=== PATIENT | male | born 1940 | race Caucasian/White ===

== ENCOUNTER 2016-10-07 09:28 | Emergency (ER) | payer MEDICARE ==
[~2016-10-07] VITALS: Ht 182.9 cm; Wt 98.0 kg
[~2016-10-07 09:28] MED LIST: BAYE325T3 PO; CARV6.25 PO; LEVO.125 PO; NITR.3 SL; PRAV40TA2 PO
[2016-10-07 09:31] VITALS: BP 185/100; PULSE 62; RESP 20; TEMP 98.3; O2SAT 95
[2016-10-07 10:28] LABS: AUTOMATED NEUTROPHIL # 3.8 TH/MM3 (1.8-7.7); BASOPHIL % 0.8 % (0.0-2.0); EOSINOPHIL # 0.4 TH/MM3 (0-0.4); EOSINOPHIL % 6.3 % (0.0-4.0); HEMATOCRIT 42.3 % (39.0-51.0); HEMO FLAGS DIFF FINAL; LYMPH % 18.5 % (9.0-44.0); MEAN CELL VOLUME 87.1 FL (80.0-100.0); MEAN CORPUSCULAR HEMOGLOBIN 30.6 PG (27.0-34.0); MEAN CORPUSCULAR HGB CONC 35.2 % (32.0-36.0); MONO % 7.3 % (0.0-8.0); NEUT % 67.1 % (16.0-70.0); PLATELET COUNT 173 TH/MM3 (150-450); RED BLOOD COUNT 4.85 MIL/MM3 (4.50-5.90); RED CELL DISTRIBUTION WIDTH 13.2 % (11.6-17.2); WHITE BLOOD COUNT 5.6 TH/MM3 (4.0-11.0)
[2016-10-07 10:48] LABS: BICARBONATE 28.7 MEQ/L (21.0-32.0)
--- NOTE | 2016-10-07 10:55 | PD ---
HPI Chief Complaint: Musculoskeletal Complaint Time Seen by Provider: 09:47 Travel History International Travel<30 days: No Contact w/Intl Traveler<30days: No Traveled to known affect area: No History of Present Illness HPI 75-year-old male here with complaint of right leg pain. Patient states that he has a history of a postoperative DVT in the right leg 7 years ago. Is no longer anticoagulated and takes baby aspirin for cardiac prophylaxis. For the last 2 days he has had a pain in her pressure in the heel of the left foot that is made worse when ambulating and when pulling his toes towards his nose. Patient also notes paresthesias as though he fell asleep on the foot and the left first and second toe region. States that this is almost identical to when he had a DVT 7 years ago prompting ER visit today. He has not had any recent travel and has not noticed any swelling. PFSH Past Medical History Arthritis: Yes Asthma: No Autoimmune Disease: No Blood Disorders: No Anxiety: No Depression: No Heart Rhythm Problems: No Cancer: Yes (PROSTATE) Cardiac Catheterization: No Cardiovascular Problems: No High Cholesterol: Yes Chemotherapy: No Chest Pain: No Congestive Heart Failure: No COPD: No Cerebrovascular Accident: No Diabetes: No Diminished Hearing: No Endocrine: Yes GERD: No Glaucoma: No Genitourinary: Yes Headaches: No Hepatitis: No Hiatal Hernia: No Hypertension: No Immune Disorder: No Implanted Vascular Access Dvce: Yes Kidney Stones: No Musculoskeletal: Yes Neurologic: No Psychiatric: No Reproductive: No Respiratory: Yes Migraines: No Myocardial Infarction: No Radiation Therapy: No Renal Failure: No Seizures: No Sleep Apnea: Yes Thyroid Disease: Yes (HYPO) Ulcer: No PNEUMOCCOCAL Vaccine (Year): 2 Past Surgical History Abdominal Surgery: Yes (HERNIA WITH MESH) AICD: No Appendectomy: No Arteriovenous Shunt: No Body Medical Devices: MESH Cardiac Surgery: No Cholecystectomy: No Coronary Artery Bypass Graft: No Ear Surgery: No Endocrine Surgery: No Eye Surgery: Yes (CATARACT SX BILATERAL) Genitourinary Surgery: Yes (prostate surgery) Gynecologic Surgery: No Insulin Pump: No Joint Replacement: No Oral Surgery: No Pacemaker: No Thoracic Surgery: No Tonsillectomy: Yes Other Surgery: Yes (PROSTATE REMOVAL) Social History Alcohol Use: Yes Tobacco Use: No Substance Use: No Allergies-Medications (Allergen,Severity, Reaction): Coded Allergies: No Known Allergies (Verified , 10/07/16) Reported Meds & Prescriptions Reported Meds & Active Scripts Active Reported Coreg 6.25 mg (Carvedilol) 6.25 Mg Tab 6.25 Mg PO BID Coby Aspirin (Aspirin) 325 Mg Tab 81 Mg PO DAILY Pravastatin Sodium 40 Mg Tab 40 Mg PO HS Synthroid (Levothyroxine Sodium) 125 Mcg Tab 112 Mcg PO DAILY Review of Systems Except as stated in HPI: all other systems reviewed are Neg Physical Exam Narrative GENERAL: Well-appearing male in no acute distress SKIN: Focused skin assessment warm/dry. HEAD: Normocephalic. EYES: No scleral icterus. No injection or drainage. ENT: Mucous membranes pink and moist. NECK: Supple CARDIOVASCULAR: Regular rate and rhythm. RESPIRATORY: No accessory muscle use. MUSCULOSKELETAL: Right leg without obvious deformity. Trace pedal edema bilaterally, symmetric. Distal sensation, pulses intact. No erythema. No tenderness to palpation. Positive Homans sign on the right. Range of motion and gait normal NEUROLOGICAL: Awake and alert. Normal speech. Subjective paresthesias over the first and second toes on the right foot PSYCHIATRIC: Appropriate mood and affect; insight and judgment normal. Data Data Last Documented VS Vital Signs Date Time Temp Pulse Resp B/P Pulse Ox O2 Delivery O2 Flow Rate FiO2 10/07/16 09:31 98.3 62 20 185/100 95 Room Air Orders Us Leg Venous Doppler (10/07/16 ) Basic Metabolic Panel (Bmp) (10/07/16 09:50) Complete Blood Count With Diff (10/07/16 09:50) Labs Laboratory Tests Test 10/07/16 10:20 White Blood Count 5.6 TH/MM3 Red Blood Count 4.85 MIL/MM3 Hemoglobin 14.9 GM/DL Hematocrit 42.3 % Mean Corpuscular Volume 87.1 FL Mean Corpuscular Hemoglobin 30.6 PG Mean Corpuscular Hemoglobin 35.2 % Concent Red Cell Distribution Width 13.2 % Platelet Count 173 TH/MM3 Mean Platelet Volume 8.4 FL Neutrophils (%) (Auto) 67.1 % Lymphocytes (%) (Auto) 18.5 % Monocytes (%) (Auto) 7.3 % Eosinophils (%) (Auto) 6.3 % Basophils (%) (Auto) 0.8 % Neutrophils # (Auto) 3.8 TH/MM3 Lymphocytes # (Auto) 1.0 TH/MM3 Monocytes # (Auto) 0.4 TH/MM3 Eosinophils # (Auto) 0.4 TH/MM3 Basophils # (Auto) 0.0 TH/MM3 CBC Comment DIFF FINAL Differential Comment Sodium Level 141 MEQ/L Potassium Level 5.0 MEQ/L Chloride Level 108 MEQ/L Carbon Dioxide Level 28.7 MEQ/L Anion Gap 4 MEQ/L Blood Urea Nitrogen 17 MG/DL Creatinine 1.35 MG/DL Estimat Glomerular Filtration 52 ML/MIN Rate Random Glucose 87 MG/DL Calcium Level 8.5 MG/DL [facility] Medical Decision Making Medical Screen Exam Complete: Yes Emergency Medical Condition: Yes Medical Record Reviewed: Yes Differential Diagnosis 75-year-old male here with complaint of pain in the right foot similar to previous DVT. Differential includes DVT, Huang cyst, muscle cramping. No trauma to suggest fracture Narrative Course Laboratory workup notable for baseline renal insufficiency. Duplex ultrasound right lower extremity showed no evidence of DVT. Diagnosis Primary Impression: Pain of right heel Referrals: Primary Care Physician as needed Additional Instructions: Follow-up with primary care provider symptoms persist. Med/Other Pt SpecificInfo: No Change to Meds Disposition: 01 DISCHARGE HOME Condition: Stable Tasia Mendes MD October 07, 2016 10:55
--- NOTE | 2016-10-07 11:04 | RADRPT ---
EXAM DATE/TIME: 10/07/2016 10:21 [facility] COMPARISON: No previous studies available for comparison. INDICATIONS : Right leg pain. MEDICAL HISTORY : Hypothyroidism. Hypercholesterolemia. Arthritis. Prostate cancer. CAD. HTN. Hyperlipidemia. Sleep apnea. Anticoagulant therapy, Aspirin 81mg. SURGICAL HISTORY : Tonsillectomy. Coronary artery stent. Prostatectomy. Bilateral cataract extraction. Hernia repair wi th mesh. Blood transfusions. ENCOUNTER: Initial ACUITY: 1 day PAIN SCORE: 5/10 LOCATION: Right leg. TECHNIQUE: Venous ultrasound of the leg was performed from the inguinal ligament to the proximal calf. Real-maura e, color Doppler and spectral tracing, compression and augmentation techniques were used. FINDINGS: There is normal compressibility of the deep venous system from the inguinal region to the proximal ca lf. No echogenic clot is seen in the lumen of the common femoral, femoral, popliteal, and posterior tibial veins. There is a normal response of the venous system to proximal and distal augmentation an d respiration. CONCLUSION: Normal examination. Ganga Barclay MD on October 07, 2016 at 11:02 Board Certified Radiologist. This report was verified electronically.
== END 2016-10-07 11:27 | disposition home or self-care (01) ==
LOC: NEPD 09:28
DX: M79.671 Pain in right foot (principal)
CPT/HCPCS: 80048; 85025; 93971

== ENCOUNTER 2017-03-10 03:03 | Observation (INO) | payer MEDICARE ==
[~2017-03-10] VITALS: Ht 182.9 cm; Wt 91.0 kg
[2017-03-10] VITALS (11 sets, daily range): BP systolic 124–213; BP diastolic 70–103; PULSE 54–104; RESP 16–20; TEMP 97.5–98.2; O2SAT 95–98
[~2017-03-10 03:03] MED LIST changes: -NITR.3 SL
[2017-03-10] MEDS ORDERED: PRAV40TA2 PO (03:15)
[2017-03-10] MEDS ORDERED: SYNT112T PO (03:15)
[2017-03-10] MEDS ORDERED: CARV6.25 PO (03:15)
[2017-03-10] MEDS ORDERED: ASPI81CH7 PO (03:15)
--- NOTE | 2017-03-10 03:18 | PD ---
HPI Chief Complaint: Chest Pain Time Seen by Provider: 03:18 Travel History International Travel<30 days: No Contact w/Intl Traveler<30days: No Traveled to known affect area: No History of Present Illness HPI 76-year-old male came to the emergency room after he was woken up from sleep with a severe substernal chest pain. Patient says the pain started in the midsternal area and radiate across the chest. The pain felt exactly like his chest pain when he had his heart attack and had 2 stents put in. This was 2-3 years ago. Patient takes aspirin. He is not on Plavix. He says initially the pain was 8 out of 10 and now it is 4 out of 10. It feels like a pressure. No aggravating or relieving factors. Patient is not a smoker. His blood pressure was more than 200 when he first came in. [facility] Past Medical History Narrative Medical List of his past medical, surgical, social and family history is reviewed from the nursing note. Arthritis: Yes Asthma: No Autoimmune Disease: No Blood Disorders: No Anxiety: No Depression: No Heart Rhythm Problems: No Cancer: Yes (PROSTATE) Cardiac Catheterization: Yes (STENT X2) Cardiovascular Problems: No High Cholesterol: Yes Chemotherapy: No Chest Pain: No Congestive Heart Failure: No COPD: No Cerebrovascular Accident: No Diabetes: No Diminished Hearing: No Endocrine: Yes GERD: No Glaucoma: No Genitourinary: Yes Headaches: No Hepatitis: No Hiatal Hernia: No Hypertension: No Immune Disorder: No Implanted Vascular Access Dvce: Yes Kidney Stones: No Musculoskeletal: Yes Neurologic: No Psychiatric: No Reproductive: No Respiratory: Yes Migraines: No Myocardial Infarction: Yes Radiation Therapy: No Renal Failure: No Seizures: No Sleep Apnea: Yes Thyroid Disease: Yes (HYPO) Ulcer: No Tetanus Vaccination: Unknown Influenza Vaccination: No PNEUMOCCOCAL Vaccine (Year): 2 Past Surgical History Abdominal Surgery: Yes (HERNIA WITH MESH) AICD: No Appendectomy: No Arteriovenous Shunt: No Body Medical Devices: MESH Cardiac Surgery: No Cholecystectomy: No Coronary Artery Bypass Graft: No Ear Surgery: No Endocrine Surgery: No Eye Surgery: Yes (CATARACT SX BILATERAL) Genitourinary Surgery: Yes (prostate surgery) Gynecologic Surgery: No Insulin Pump: No Joint Replacement: No Oral Surgery: No Pacemaker: No Thoracic Surgery: No Tonsillectomy: Yes Other Surgery: Yes (PROSTATE REMOVAL) Family History Family Myocardial Infarction: Yes (MOTHER NOT SURE OF DATE) Social History Alcohol Use: Yes Tobacco Use: No Substance Use: No Allergies-Medications (Allergen,Severity, Reaction): Coded Allergies: No Known Allergies (Verified , 10/07/16) Comments No known drug allergies. Reported Meds & Prescriptions Reported Meds & Active Scripts Active Reported Pravastatin 40 Mg Tab 40 Mg PO HS Synthroid (Levothyroxine Sodium) 112 Mcg Tab 112 Mcg PO DAILY Coreg (Carvedilol) 6.25 Mg Tab 6.25 Mg PO BID Aspirin Children's (Aspirin) 81 Mg Chew 81 Mg PO DAILY Coreg 6.25 mg (Carvedilol) 6.25 Mg Tab 6.25 Mg PO BID Coby Aspirin (Aspirin) 325 Mg Tab 81 Mg PO DAILY Pravastatin Sodium 40 Mg Tab 40 Mg PO HS Synthroid (Levothyroxine Sodium) 125 Mcg Tab 112 Mcg PO DAILY Narrative Medication List of his home medications reviewed from the nursing note. Review of Systems Except as stated in HPI: all other systems reviewed are Neg Cardiovascular: Positive: Chest Pain or Discomfort Physical Exam Narrative GENERAL: Awake, alert, anxious SKIN: Focused skin assessment warm/dry. HEAD: Atraumatic. Normocephalic. EYES: Pupils equal and round. No scleral icterus. No injection or drainage. ENT: No nasal bleeding or discharge. Mucous membranes pink and moist. NECK: Trachea midline. No JVD. CARDIOVASCULAR: Regular rate and rhythm. No murmur appreciated. RESPIRATORY: No accessory muscle use. Clear to auscultation. Breath sounds equal bilaterally. GASTROINTESTINAL: Abdomen soft, non-tender, nondistended. Hepatic and splenic margins not palpable. MUSCULOSKELETAL: No obvious deformities. No clubbing. No cyanosis. No edema. NEUROLOGICAL: Awake and alert. No obvious cranial nerve deficits. Motor grossly within normal limits. Normal speech. PSYCHIATRIC: Appropriate mood and affect; insight and judgment normal. Data Data Last Documented VS Orders Orders Complete Blood Count With Diff (03/10/17 03:15) Chest, Single Ap (03/10/17 03:15) Iv Access Insert/Monitor (03/10/17 03:15) Ecg Monitoring (03/10/17 03:15) Oxygen Administration (03/10/17 03:15) Oximetry (03/10/17 03:15) Electrocardiogram (03/10/17 03:18) Basic Metabolic Panel (Bmp) (03/10/17 03:18) Ckmb (Isoenzyme) Profile (03/10/17 03:18) Magnesium (Mg) (03/10/17 03:18) Prothrombin Time / Inr (Pt) (03/10/17 03:18) Act Partial Throm Time (Ptt) (03/10/17 03:18) Troponin I (03/10/17 03:18) Bilateral Bp Monitoring (03/10/17 03:18) Aspirin Chew (Aspirin Chew) (03/10/17 03:30) Sodium Chloride 0.9% Flush (Ns Flush) (03/10/17 03:30) Nitroglycerin Sl (Nitrostat Sl) (03/10/17 03:30) CKMB (03/10/17 03:15) CKMB% (03/10/17 03:15) Admit Order (Ed Use Only) (03/10/17 04:33) Place In Observation (03/10/17 04:33) Activity Bed Rest With Brp (03/10/17 04:33) Vital Signs (Adult) Q4H (03/10/17 04:33) Cardiac Rhythm .As Directed (03/10/17 04:33) Notify Dr: Other .PRN (03/10/17 04:33) Notify DrKirk Parameters (03/10/17 04:33) Resp Oxygen Nasal Cannula (03/10/17 ) Diet Heart Healthy (03/10/17 Breakfast) Ckmb (Isoenzyme) Profile (03/10/17 04:33) Troponin I (03/10/17 04:33) Electrocardiogram (03/10/17 07:33) ^ Obtain (03/10/17 04:33) Sodium Chloride 0.9% Flush (Ns Flush) (03/10/17 04:45) Sodium Chloride 0.9% Flush (Ns Flush) (03/10/17 09:00) Acetaminophen (Tylenol) (03/10/17 04:45) Ondansetron Inj (Zofran Inj) (03/10/17 04:45) Nitroglycerin Sl (Nitrostat Sl) (03/10/17 04:45) Composition Siding Worker / Telemetry VIVIAN.Q8H (03/10/17 04:33) CKMB (03/10/17 06:05) CKMB% (03/10/17 06:05) Labs Laboratory Tests Test 03/10/17 03:15 White Blood Count 6.5 TH/MM3 Red Blood Count 5.14 MIL/MM3 Hemoglobin 15.8 GM/DL Hematocrit 46.0 % Mean Corpuscular Volume 89.5 FL Mean Corpuscular Hemoglobin 30.7 PG Mean Corpuscular Hemoglobin Concent 34.4 % Red Cell Distribution Width 13.6 % Platelet Count 205 TH/MM3 Mean Platelet Volume 8.5 FL Neutrophils (%) (Auto) 60.0 % Lymphocytes (%) (Auto) 22.2 % Monocytes (%) (Auto) 9.7 % Eosinophils (%) (Auto) 7.3 % Basophils (%) (Auto) 0.8 % Neutrophils # (Auto) 3.9 TH/MM3 Lymphocytes # (Auto) 1.4 TH/MM3 Monocytes # (Auto) 0.6 TH/MM3 Eosinophils # (Auto) 0.5 TH/MM3 Basophils # (Auto) 0.1 TH/MM3 CBC Comment DIFF FINAL Differential Comment Prothrombin Time 10.0 SEC Prothromb Time International Ratio 0.9 RATIO Activated Partial Thromboplast Time 27.4 SEC Blood Urea Nitrogen 19 MG/DL Creatinine 1.41 MG/DL Random Glucose 109 MG/DL Calcium Level 8.7 MG/DL Magnesium Level 2.4 MG/DL Sodium Level 143 MEQ/L Potassium Level 4.2 MEQ/L Chloride Level 110 MEQ/L Carbon Dioxide Level 27.0 MEQ/L Anion Gap 6 MEQ/L Estimat Glomerular Filtration Rate 49 ML/MIN Total Creatine Kinase 145 U/L Creatine Kinase MB 1.9 NG/ML Troponin I LESS THAN 0.02 NG/ML MDM Medical Decision Making Medical Screen Exam Complete: Yes Emergency Medical Condition: Yes Medical Record Reviewed: Yes Interpretation(s) Twelve-lead EKG was reviewed by me. Normal sinus rhythm, left axis deviation, nonspecific ST-T wave changes, first-degree AV block. Heart rate of 65 bpm. Differential Diagnosis ACS, non-STEMI, hypertensive urgency Narrative Course 4:37 AM patient was given 2 baby aspirin and a sublingual nitroglycerin. With test results of back and within acceptable limits. Blood pressure is down to 125/75. Patient says his pain is down to 1 out of 10. Given his risk factors I will admit him to the chest pain center so that he can be evaluated by the tip banding machine operator to rule out ACS. Patient is comfortable with that plan. Procedures EKG Prior to Arrival: No Diagnosis Primary Impression: Chest pain Qualified Codes: R07.9 - Chest pain, unspecified Admitting Information Admitting Physician Requests: Hunter Gray MD Mar 10, 2017 03:18
[2017-03-10] MEDS ORDERED: NITROGLYCERIN 0.4 MG SL 25 TABS/BTL SL ONE (03:30)
[2017-03-10] MEDS ORDERED: SODIUM CHLORIDE 0.9% FLUSH 10 ML FLUSH IVF PRN (03:30)
[2017-03-10] MEDS ORDERED: ASPIRIN 81 MG CHEW TAB PO ONE (03:30)
[2017-03-10 03:32] LABS: AUTOMATED NEUTROPHIL # 3.9 TH/MM3 (1.8-7.7); BASOPHIL # 0.1 TH/MM3 (0-0.2); BASOPHIL % 0.8 % (0.0-2.0); EOSINOPHIL # 0.5 TH/MM3 (0-0.4); EOSINOPHIL % 7.3 % (0.0-4.0); HEMOGLOBIN 15.8 GM/DL (13.0-17.0); LYMPH % 22.2 % (9.0-44.0); LYMPHOCYTE # 1.4 TH/MM3 (1.0-4.8); MEAN CELL VOLUME 89.5 FL (80.0-100.0); MEAN CORPUSCULAR HEMOGLOBIN 30.7 PG (27.0-34.0); MEAN CORPUSCULAR HGB CONC 34.4 % (32.0-36.0); MEAN PLATELET VOLUME 8.5 FL (7.0-11.0); MONO % 9.7 % (0.0-8.0); MONOCYTE # 0.6 TH/MM3 (0-0.9); PLATELET COUNT 205 TH/MM3 (150-450); RED BLOOD COUNT 5.14 MIL/MM3 (4.50-5.90); RED CELL DISTRIBUTION WIDTH 13.6 % (11.6-17.2); WHITE BLOOD COUNT 6.5 TH/MM3 (4.0-11.0)
[2017-03-10 03:40] LABS: INTERNATIONAL NORMALIZED RATIO 0.9 RATIO
--- NOTE | 2017-03-10 03:41 | RADRPT ---
EXAM DATE/TIME: 03/10/2017 03:16 [facility] COMPARISON: No previous studies available for comparison. INDICATIONS : Chest pain. MEDICAL HISTORY : Hypothyroidism. Hypercholesterolemia. Arthritis. Prostate cancer. CAD. HTN.Hyperlipidemia. Sleep apne a. Anticoagulant therapy. SURGICAL HISTORY : Tonsillectomy. Coronary artery stent. Prostatectomy. Bilateral cataract extraction. Hernia repair wit h mesh. ENCOUNTER: Initial ACUITY: 1 day PAIN SCORE: 4/10 LOCATION: Bilateral chest FINDINGS: A single view of the chest demonstrates the lungs to be symmetrically aerated without evidence of mas s, infiltrate or effusion. The cardiomediastinal contours are unremarkable. Osseous structures are intact. CONCLUSION: No evidence of acute cardiopulmonary disease. Aroldo Zurita MD on March 10, 2017 at 3:39 Board Certified Radiologist. This report was verified electronically.
[2017-03-10 03:58] LABS: BLOOD UREA NITROGEN 19 MG/DL (7-18); CALCIUM 8.7 MG/DL (8.5-10.1); CHLORIDE 110 MEQ/L (98-107); CREATININE 1.41 MG/DL (0.60-1.30); GLOMERULAR FILTRATION RATE 49 ML/MIN (>89); GLUCOSE,RANDOM 109 MG/DL (74-106); MAGNESIUM 2.4 MG/DL (1.5-2.5); SODIUM (NA) 143 MEQ/L (136-145)
[2017-03-10 04:02] LABS: TROPONIN I LESS THAN 0.02 NG/ML (0.02-0.05)
[2017-03-10] MEDS ORDERED: ONDANSETRON HCL 4 MG/2 ML VIAL IV PUSH PRN (04:45)
[2017-03-10] MEDS ORDERED: NITROGLYCERIN 0.4 MG SL 25 TABS/BTL SL PRN (04:45)
[2017-03-10] MEDS ORDERED: SODIUM CHLORIDE 0.9% FLUSH 10 ML FLUSH IV FLUSH PRN (04:45)
[2017-03-10] MEDS ORDERED: ACETAMINOPHEN 500 MG CPLT PO PRN (04:45)
[2017-03-10 06:50] LABS: TROPONIN I LESS THAN 0.02 NG/ML (0.02-0.05)
[2017-03-10] MEDS ORDERED: LEVOTHYROXINE SODIUM 112 MCG TAB PO SCH (08:00)
--- NOTE | 2017-03-10 08:17 | MH ---
cc: JOSH PANCHAL MD DATE OF ADMISSION: 03/10/2017 HISTORY OF PRESENT ILLNESS This is a 76-year-old gentleman who presented to the emergency room with chest discomfort which woke him from sleep and was described as a pressure-type discomfort. No significant shortness of breath, diaphoresis, nausea or vomiting was present. He noted this was similar to a prior episode that he had in 2014 when he had an acute inferior TX and came to the emergency department. He was given sublingual nitroglycerin with relief of his discomfort. An electrocardiogram done in the emergency department and subsequently after his discomfort are normal, and serial troponins have been unremarkable. Actually he has been doing very well since his TX with no other episodes of exertional or nonexertional discomfort. PAST MEDICAL HISTORY 1. Hypertension. 2. Hyperlipidemia. 3. Hypothyroidism. MEDICATIONS Medications at home have included: 1. Carvedilol 6.25 mg twice daily. 2. Aspirin 81 mg daily. 3. Pravastatin 40 mg daily. 4. Synthroid 125 mcg daily. ALLERGIES None. SOCIAL HISTORY The patient does not smoke. He occasionally drinks alcohol. He does not use recreational drugs. REVIEW OF SYSTEMS Otherwise unremarkable. PHYSICAL EXAMINATION GENERAL: He is awake and alert. VITAL SIGNS: Blood pressure 120/70, pulse 70 and regular. NECK: There is no neck vein distension. Carotids are normal. LUNGS: Clear. CARDIOVASCULAR: Regular rate and rhythm with no significant murmur or gallop noted. ABDOMEN: Soft. There is no tenderness or organomegaly. EXTREMITIES: No edema. ASSESSMENT AND PLAN The patient has had chest discomfort of uncertain etiology. I will discuss this with Dr. Cervantes. Will plan a Lexiscan for further evaluation and continue his present medical regimen. MD QUINTON Story/LEON /7:54 AM /8:00 AM
--- NOTE | 2017-03-10 08:17 | MH ---
cc: JOSH PANCHAL MD DATE OF ADMISSION: 03/10/2017 HISTORY OF PRESENT ILLNESS This is a 76-year-old gentleman who presented to the emergency room with chest discomfort which woke him from sleep and was described as a pressure-type discomfort. No significant shortness of breath, diaphoresis, nausea or vomiting was present. He noted this was similar to a prior episode that he had in 2014 when he had an acute inferior SC and came to the emergency department. He was given sublingual nitroglycerin with relief of his discomfort. An electrocardiogram done in the emergency department and subsequently after his discomfort are normal, and serial troponins have been unremarkable. Actually he has been doing very well since his SC with no other episodes of exertional or nonexertional discomfort. PAST MEDICAL HISTORY 1. Hypertension. 2. Hyperlipidemia. 3. Hypothyroidism. MEDICATIONS Medications at home have included: 1. Carvedilol 6.25 mg twice daily. 2. Aspirin 81 mg daily. 3. Pravastatin 40 mg daily. 4. Synthroid 125 mcg daily. ALLERGIES None. SOCIAL HISTORY The patient does not smoke. He occasionally drinks alcohol. He does not use recreational drugs. REVIEW OF SYSTEMS Otherwise unremarkable. PHYSICAL EXAMINATION GENERAL: He is awake and alert. VITAL SIGNS: Blood pressure 120/70, pulse 70 and regular. NECK: There is no neck vein distension. Carotids are normal. LUNGS: Clear. CARDIOVASCULAR: Regular rate and rhythm with no significant murmur or gallop noted. ABDOMEN: Soft. There is no tenderness or organomegaly. EXTREMITIES: No edema. ASSESSMENT AND PLAN The patient has had chest discomfort of uncertain etiology. I will discuss this with Dr. Cervantes. Will plan a Lexiscan for further evaluation and continue his present medical regimen. MD QUINTON Story/LEON /7:54 AM /8:00 AM
--- NOTE | 2017-03-10 08:17 | MH ---
cc: JOSH PANCHAL MD DATE OF ADMISSION: 03/10/2017 HISTORY OF PRESENT ILLNESS This is a 76-year-old gentleman who presented to the emergency room with chest discomfort which woke him from sleep and was described as a pressure-type discomfort. No significant shortness of breath, diaphoresis, nausea or vomiting was present. He noted this was similar to a prior episode that he had in 2014 when he had an acute inferior ID and came to the emergency department. He was given sublingual nitroglycerin with relief of his discomfort. An electrocardiogram done in the emergency department and subsequently after his discomfort are normal, and serial troponins have been unremarkable. Actually he has been doing very well since his ID with no other episodes of exertional or nonexertional discomfort. PAST MEDICAL HISTORY 1. Hypertension. 2. Hyperlipidemia. 3. Hypothyroidism. MEDICATIONS Medications at home have included: 1. Carvedilol 6.25 mg twice daily. 2. Aspirin 81 mg daily. 3. Pravastatin 40 mg daily. 4. Synthroid 125 mcg daily. ALLERGIES None. SOCIAL HISTORY The patient does not smoke. He occasionally drinks alcohol. He does not use recreational drugs. REVIEW OF SYSTEMS Otherwise unremarkable. PHYSICAL EXAMINATION GENERAL: He is awake and alert. VITAL SIGNS: Blood pressure 120/70, pulse 70 and regular. NECK: There is no neck vein distension. Carotids are normal. LUNGS: Clear. CARDIOVASCULAR: Regular rate and rhythm with no significant murmur or gallop noted. ABDOMEN: Soft. There is no tenderness or organomegaly. EXTREMITIES: No edema. ASSESSMENT AND PLAN The patient has had chest discomfort of uncertain etiology. I will discuss this with Dr. Cervantes. Will plan a Lexiscan for further evaluation and continue his present medical regimen. MD QUINTON Story/LEON /7:54 AM /8:00 AM
[2017-03-10] MEDS ORDERED: CARVEDILOL 6.25 MG TAB PO SCH (09:00)
[2017-03-10] MEDS ORDERED: SODIUM CHLORIDE 0.9% FLUSH 10 ML FLUSH IV FLUSH SCH (09:00)
[2017-03-10] MEDS ORDERED: ASPIRIN 81 MG CHEW TAB PO SCH (09:00)
[2017-03-10] MEDS ORDERED: REGADENOSON INJ 0.4 MG/5 ML SYR ONE (10:11)
--- NOTE | 2017-03-10 11:30 | RADRPT ---
EXAM DATE/TIME: 03/10/2017 09:00 [facility] COMPARISON: No previous studies available for comparison. INDICATIONS : Substernal chest pain. Angina. DOSE: 26.4 mCi Tc99m Myoview at stress. 8.7 mCi Tc99m Myoview at rest. 0.4 mg Lexiscan STRESS SYMPTOMS: Dyspnea and headache. EJECTION FRACTION: 63% MEDICAL HISTORY : Hypercholesterolemia. Hypertension. Carcinoma, prostate. SURGICAL HISTORY : Coronary artery stent. Tonsillectomy. ENCOUNTER: Initial ACUITY: 1 day PAIN SCALE: 8/10 LOCATION: Substernal chest TECHNIQUE: The patient underwent pharmacologic stress with infusion of prescribed dose. Continuous ECG tracing was monitored during stress. Gated SPECT imaging was performed after stress and conventional SPECT i maging was performed at rest. The examination was performed on a SPECT/CT scanner, both attenuation and non-corrected datasets were reviewed. FINDINGS: DISTRIBUTION: The maximum perfused segment at stress is in the anterolateral wall. PERFUSION STUDY: The pattern of perfusion at stress shows fixed diminished perfusion to the apex. Approximately 10% re distribution in segments of the inferolateral wall would not be considered statistically significant. GATED STUDY: There is intact wall motion and thickening without hypokinetic or dyskinetic segments. CONCLUSION: 1. 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 2. No reversibility to suggest ischemia. 3. Adequate wall motion throughout with an estimated ejection fraction of 63%. RISK CATEGORY: Low (<1% Annual Mortality Rate) Joseph Vela MD on March 10, 2017 at 11:26 Board Certified Radiologist. This report was verified electronically.
--- NOTE | 2017-03-10 12:30 | PD.CARD.PN ---
Subjective Subjective Remarks Feels well. No further chest pain. Lexiscan shows no evidence of ischemia. Will allow home with follow up with Dr. Cervantes. Patient to return if symptoms recur Objective Medications Current Medications Medications (Trade) Dose Ordered Sig/Chuy Route Start Time Stop Time Status Last Admin (NS Flush) 2 ml UNSCH PRN IV FLUSH 03/10/17 04:45 (NS Flush) 2 ml BID IV FLUSH 03/10/17 09:00 03/10/17 07:52 (Tylenol) 500 mg Q4H PRN PO 03/10/17 04:45 (Zofran Inj) 4 mg Q6H PRN IV PUSH 03/10/17 04:45 (Nitrostat Sl) 0.4 mg Q5M PRN SL 03/10/17 04:45 (Coreg) 6.25 mg Q12HR PO 03/10/17 09:00 03/10/17 11:29 (Aspirin Chew) 81 mg DAILY PO 03/10/17 09:00 03/10/17 11:29 (Synthroid) 112 mcg DAILY@0600 PO 03/10/17 08:00 03/10/17 11:30 (Pravachol) 40 mg HS PO 03/10/17 21:00 Vital Signs / I&O Vital Signs Date Time Temp Pulse Resp B/P (MAP) Pulse Ox O2 Delivery O2 Flow Rate FiO2 03/10/17 12:02 98.2 57 16 157/86 (109) 95 03/10/17 07:57 60 03/10/17 07:19 98.0 54 16 154/89 (110) 97 03/10/17 07:09 97 03/10/17 05:35 98.1 58 18 163/82 (109) 97 03/10/17 05:17 03/10/17 05:00 60 16 135/70 (91) 97 Room Air 03/10/17 04:00 58 16 124/70 (88) 97 Room Air 03/10/17 03:45 61 16 141/77 (98) 97 Room Air 03/10/17 03:30 69 16 188/87 (120) 97 Room Air 03/10/17 03:07 97.5 76 16 212/103 (139) 98 03/10/17 03:04 97.9 104 20 213/103 (139) 96 Room Air Laboratory Laboratory Tests Test 03/10/17 03:15 03/10/17 06:05 White Blood Count 6.5 TH/MM3 Red Blood Count 5.14 MIL/MM3 Hemoglobin 15.8 GM/DL Hematocrit 46.0 % Mean Corpuscular Volume 89.5 FL Mean Corpuscular Hemoglobin 30.7 PG Mean Corpuscular Hemoglobin Concent 34.4 % Red Cell Distribution Width 13.6 % Platelet Count 205 TH/MM3 Mean Platelet Volume 8.5 FL Neutrophils (%) (Auto) 60.0 % Lymphocytes (%) (Auto) 22.2 % Monocytes (%) (Auto) 9.7 % Eosinophils (%) (Auto) 7.3 % Basophils (%) (Auto) 0.8 % Neutrophils # (Auto) 3.9 TH/MM3 Lymphocytes # (Auto) 1.4 TH/MM3 Monocytes # (Auto) 0.6 TH/MM3 Eosinophils # (Auto) 0.5 TH/MM3 Basophils # (Auto) 0.1 TH/MM3 CBC Comment DIFF FINAL Differential Comment Prothrombin Time 10.0 SEC Prothromb Time International Ratio 0.9 RATIO Activated Partial Thromboplast Time 27.4 SEC Blood Urea Nitrogen 19 MG/DL Creatinine 1.41 MG/DL Random Glucose 109 MG/DL Calcium Level 8.7 MG/DL Magnesium Level 2.4 MG/DL Sodium Level 143 MEQ/L Potassium Level 4.2 MEQ/L Chloride Level 110 MEQ/L Carbon Dioxide Level 27.0 MEQ/L Anion Gap 6 MEQ/L Estimat Glomerular Filtration Rate 49 ML/MIN Total Creatine Kinase 145 U/L 127 U/L Creatine Kinase MB 1.9 NG/ML 1.6 NG/ML Troponin I LESS THAN 0.02 NG/ML LESS THAN 0.02 NG/ML Imaging Last 24 hours Impressions Chest X-Ray 03/10/17 0315 Signed Impressions: Service Date/Time: Friday, March 10, 2017 03:16 - CONCLUSION: No evidence of acute cardiopulmonary disease. Aroldo Zurita MD Myocardial Perfusion Scan Nuc Med 03/10/17 0000 Signed Impressions: Service Date/Time: Friday, March 10, 2017 09:00 - CONCLUSION: 1. 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 2. No reversibility to suggest ischemia. 3. Adequate wall motion throughout with an estimated ejection fraction of 63%%. RISK CATEGORY: Low (<1%% Annual Mortality Rate) MD Duane Barber David Lowell MD Mar 10, 2017 12:30
--- NOTE | 2017-03-10 14:39 | HHI.DS ---
Discharge Summary Admission Date Mar 10, 2017 at 04:35 Admitting Diagnosis chest pain, rule out ACS CBC/BMP: 03/10/1731403/10/17314 Significant Findings Laboratory Tests Test 03/10/17 03:15 03/10/17 06:05 Monocytes (%) (Auto) 9.7 % (0.0-8.0) Eosinophils (%) (Auto) 7.3 % (0.0-4.0) Eosinophils # (Auto) 0.5 TH/MM3 (0-0.4) Blood Urea Nitrogen 19 MG/DL (7-18) Creatinine 1.41 MG/DL (0.60-1.30) Random Glucose 109 MG/DL (74-106) Chloride Level 110 MEQ/L (98-107) Estimat Glomerular Filtration Rate 49 ML/MIN (>89) Troponin I LESS THAN 0.02 NG/ML LESS THAN 0.02 NG/ML Pt Condition on Discharge: Good Discharge Disposition: Discharge Home Discharge Instructions DIET: Follow Instructions for: Heart Healthy Diet Activities you can perform: Regular-No Restrictions Shawn Zepeda MD Mar 10, 2017 14:39
--- NOTE | 2017-03-10 19:21 | EKG ---
Date Performed: 03/10/2017 Time Performed: 06:12:49 PTAGE: 76 years EKG: SINUS BRADYCARDIA WITH FIRST DEGREE AV BLOCK MARKED LEFT AXIS DEVIATION PATTERN CONSISTENT WITH PULMONARY DISEASE INCOMPLETE RIGHT BUNDLE BRANCH BLOCK ABNORMAL ECG PREVIOUS TRACING : 03/10/2017 03.11 Compared to prior tracing no significant change DOCTOR: Riley Beaver Interpretating Date/Time 03/10/2017 19:20:39
--- NOTE | 2017-03-10 19:29 | EKG ---
Date Performed: 03/10/2017 Time Performed: 03:11:26 PTAGE: 76 years EKG: Sinus rhythm WITH FIRST DEGREE AV BLOCK PATTERN CONSISTENT WITH PULMONARY DISEASE INCOMPLETE RIGHT BUNDLE BRANCH BLOCK LEFT ANTERIOR FASCICULAR BLOCK ABNORMAL ECG PREVIOUS TRACING : 06/30/2013 04.59 Compared to prior tracing no significant change DOCTOR: Riley Beaver Interpretating Date/Time 03/10/2017 19:27:26
[2017-03-10] MEDS ORDERED: PRAVASTATIN SOD 40 MG TAB PO SCH (21:00)
--- NOTE | 2017-03-11 15:37 | TR ---
Date Performed: 03/10/2017 Time Performed: 09:42:06 DOCTOR: Jason Hurtado DRUG LIST: CLINICAL HISTORY: REASON FOR TEST: CHEST PAIN REASON FOR ENDING: OBSERVATION: CONCLUSION: Lexiscan stress test was performed under standard four minute protocol. Radionuclide was injected one minute prior to ending the test. No electrocardiographic abormalities were present to suggest ischemia. Nuclear imaging and interpretation are pending. COMMENTS:
== END 2017-03-10 15:01 | disposition home or self-care (01) ==
LOC: NEPC 03:03 → NEDA 04:35 → NEPFCDU 05:28
PROVIDERS: ADMIT Internal Medicine Cardiovascular Disease; ATTEND Internal Medicine Cardiovascular Disease
DX: R07.9 Chest pain, unspecified (principal); Z79.82 Long term (current) use of aspirin; M19.90 Unspecified osteoarthritis, unspecified site; E78.00 Pure hypercholesterolemia, unspecified; G47.30 Sleep apnea, unspecified; I44.0 Atrioventricular block, first degree; I25.2 Old myocardial infarction; E03.9 Hypothyroidism, unspecified; Z95.5 Presence of coronary angioplasty implant and graft; Z79.899 Other long term (current) drug therapy
CPT/HCPCS: 71010; 78452; 80048; 82550; 82552; 83735; 84484; 85025; 85610; 85730; 93005; 93017; 99285; A9502; G0378; J2785

== ENCOUNTER 2018-01-21 01:49 | Observation (INO) ==
--- NOTE | 2018-01-21 02:08 | ED ---
HPI General Chief complaint: Chest Pain Stated complaint: Chest pain Time Seen by Provider: 01/21/18 01:59 History of Present Illness HPI narrative: 77-year-old male with history of cardiac disease with 2 stents placed a few years ago, followed by architecture drafter Dr. Cervantes, recently diagnosed on 01/16/18 with diverticulitis, currently on antibiotics, here by private vehicle for evaluation of chest pain. The patient reports that at 1:00 AM he was awoken from sleep with severe substernal chest pain described as burning. He reports similar pain when he had 2 stents placed a few years ago. He states that the pain was initially 9 out of 10, currently 4 out of 10, nonradiating, no modifying factors. He denies fevers or chills. No dyspnea. No paresthesias or motor deficits. Reports that his abdominal pain has resolved since starting antibiotics on 01/16/18 for diverticulitis. He took an 81 mg aspirin at 9 PM. Related Data Home Medications Medication Instructions Recorded Confirmed aspirin [Aspirin Childrens] 81 mg PO DAILY 01/16/18 01/21/18 carvedilol 6.25 mg PO BID 01/16/18 01/21/18 levothyroxine 112 mcg PO DAILY 01/16/18 01/21/18 pravastatin 40 mg PO DAILY 01/16/18 01/21/18 Previous Rx's Medication Instructions Recorded amoxicillin-pot clavulanate 1 tab PO BID 14 Days #28 tab 01/16/18 [Augmentin] hydrocodone-acetaminophen 1 tab PO Q8H PRN #7 tab 01/17/18 Allergies Allergy/AdvReac Type Severity Reaction Status Date / Time ciprofloxacin Allergy Itching, Verified 01/16/18 23:44 Localized Review of Systems ROS: all other systems reviewed are negative PMFSH Medical History Medical History HTN (hypertension) (Acute) History of heart attack (Acute) Hx of malignant neoplasm of prostate (Acute) Hx of renal failure (Acute) Hyperlipidemia (Acute) Surgical History Surgical History Hx of prostatectomy (Acute) Social History Social History Substance History: No History of Abuse Second Hand Smoke Exposure: No Smoking Status: Never smoker How Often Do You Have a Drink Containing Alcohol: Monthly or less Recent Travel in [facility] within the Last 8 Weeks: No Recent Out of Country Travel within the Last 8 Weeks: No Exam Narrative Exam Narrative: GENERAL: Well-developed, well-nourished, awake, alert, no apparent distress. SKIN: Focused skin assessment warm/dry. HEAD: Atraumatic. Normocephalic. EYES: Pupils equal and round. No scleral icterus. No injection or drainage. ENT: No nasal bleeding or discharge. Mucous membranes pink and moist. NECK: Trachea midline. No JVD. CARDIOVASCULAR: Regular rate and rhythm. No murmur appreciated. Distal pulses brisk and equal bilaterally. RESPIRATORY: No accessory muscle use. Clear to auscultation. Breath sounds equal bilaterally. GASTROINTESTINAL: Abdomen soft, non-tender, nondistended. MUSCULOSKELETAL: No obvious deformities. No clubbing. No cyanosis. No edema. NEUROLOGICAL: Awake and alert. No obvious cranial nerve deficits. Motor grossly within normal limits. Normal speech. PSYCHIATRIC: Appropriate mood and affect; insight and judgment normal. Course Initial Documented Vital Signs Temperature 98.5 F 01/21/18 02:03 Pulse Rate 59 L 01/21/18 02:03 Respiratory Rate 19 01/21/18 02:03 Blood Pressure 208/98 H 01/21/18 02:03 Pulse Oximetry 97 01/21/18 02:03 Last Documented Vital Signs Temperature 98.5 F 01/21/18 02:03 Pulse Rate 56 L 01/21/18 02:04 Respiratory Rate 16 01/21/18 02:54 Blood Pressure 208/98 H 01/21/18 02:03 Pulse Oximetry 97 01/21/18 02:04 Medical Decision Making MDM Narrative Medical decision making narrative: Vital signs reviewed. Labs reviewed and are essentially unremarkable. Cardiac enzymes are negative. Chest x-ray shows no acute disease. Patient was made aware of all findings. He was given a full aspirin as well as 1 sublingual nitroglycerin and states his pain is resolved. Given his cardiac risk factors and the fact that his chest discomfort felt similar to when he required a stent, he will be admitted to the chest pain center for further cardiac evaluation. Medical Screen Exam Complete: Yes Emergency Medical Condition: Yes Differential Diagnosis Differential Diagnosis: ACS, pneumothorax, gastritis, peptic ulcer disease, GERD , PE, pneumonia Lab Data Result diagrams: 01/21/18 02:05 01/21/18 02:05 Lab Results 01/21/18 01/21/18 Range/Units 02:05 02:05 WBC 5.4 (4.0-11.0) th/mm3 RBC 4.76 (4.50-5.90) mil/mm3 Hgb 14.6 (13.0-17.0) gm/dL Hct 43.1 (39.0-51.0) % MCV 90.5 (80.0-100.0) fL MCH 30.7 (27.0-34.0) pg MCHC 33.9 (32.0-36.0) % RDW 13.6 (11.6-17.2) % Plt Count 235 (150-450) th/mm3 MPV 8.6 (7.0-11.0) fL Neut % (Auto) 57.1 (16.0-70.0) % Lymph % (Auto) 25.4 (9.0-44.0) % [place] % (Auto) 8.0 (0.0-8.0) % Eos % (Auto) 8.4 H (0.0-4.0) % Baso % (Auto) 1.1 (0.0-2.0) % Neut # (Auto) 3.1 (1.8-7.7) th/mm3 Lymph # (Auto) 1.4 (1.0-4.8) th/mm3 [place] # (Auto) 0.4 (0.0-0.9) th/mm3 Eos # (Auto) 0.5 H (0.0-0.4) th/mm3 Baso # (Auto) 0.1 (0.0-0.2) th/mm3 WBC Differential . Differential Comment Auto diff final Sodium 144 (136-145) meq/L Potassium 4.5 (3.5-5.1) meq/L Chloride 107 (98-107) meq/L Carbon Dioxide 29.5 (21.0-32.0) meq/L Anion Gap 8 (5-15) meq/L BUN 19 H (7-18) mg/dL Creatinine 1.39 H (0.60-1.30) mg/dL Estimated GFR 50 L (>89) mL/min Random Glucose 97 (74-106) mg/dL Calcium 8.4 L (8.5-10.1) mg/dL Total Bilirubin 1.2 H (0.2-1.0) mg/dL AST 22 (15-37) U/L ALT 33 (12-78) U/L Alkaline Phosphatase 51 (45-117) U/L Total Creatine Kinase 186 (39-308) U/L CK-MB (CK-2) 1.7 (0.5-3.6) ng/mL Troponin I Less than 0.02 L (0.02-0.05) ng/mL Total Protein 6.7 D (6.4-8.2) g/dL Albumin 3.4 (3.4-5.0) g/dL Imaging Data Radiologist's impression: Chest X-Ray 01/21/18 02:04 CONCLUSION: The lungs are clear. ECG Data Attestation: I personally reviewed and interpreted this ECG as follows: (Sinus, rate 66, leftward axis, incomplete RBBB, LAFB, no acute ischemic abnormality, no changes.) Discharge Plan Discharge Disposition Patient Disposition: 30 Still Patient Discharge Details Diagnosis: Chest pain Physicians Team ED Provider: Enrrique Conti Rxs /Orders / Referrals /Forms Prescriptions: No Action carvedilol 6.25 mg Tablet 6.25 mg PO BID RF: 0 pravastatin 40 mg Tablet 40 mg PO DAILY RF: 0 aspirin [Aspirin Childrens] 81 mg Tablet,Chewable 81 mg PO DAILY RF: 0 levothyroxine 112 mcg Tablet 112 mcg PO DAILY RF: 0 amoxicillin-pot clavulanate [Augmentin] 875-125 mg tablet 1 tab PO BID 14 Days Qty: 28 RF: 0 hydrocodone-acetaminophen 5-325 mg tablet 1 tab PO Q8H PRN (Reason: Acute pain) Qty: 7 RF: 0 Discharge Instructions Patient Printed Instructions: Chest Pain (ED) Status ED Status: With Doctor
--- NOTE | 2018-01-21 02:35 | XR ---
EXAM DATE: 01/21/2018 2:19 AM EDT AGE/SEX: 77 years / Male INDICATIONS: Chest pain today suddenly while sleeping. CLINICAL DATA: This is the patient's initial encounter. Patient reports that signs and symptoms have been present for 1 day and indicates a pain score of 7/10. MEDICAL/SURGICAL HISTORY: . Hypothyroidism. Hypercholesterolemia. Arthritis. Prostate cancer. C AD. Hypertension. Hyperlipidemia. Sleep apnea. Anticoagulant therapy. . Tonsillectomy. Coronary art day stent. Prostatectomy. Bilateral cataract extraction. Hernia repair with mesh. COMPARISON: [facility] [place], CHEST SINGLE AP, 03/10/2017. . FINDINGS: A single AP view of the chest demonstrates the lungs to be symmetrically aerated without evidence of mass, infiltrate or effusion. No evidence of pneumothorax. The cardiomediastinal contours are unrema rkable. Osseous structures are intact. CONCLUSION: The lungs are clear. Electronically signed by: Jeffrey De Santiago MD 01/21/2018 2:34 AM EDT
[2018-01-21 02:45] LABS: Alanine Aminotransferase 33 U/L (12-78); Albumin 3.4 g/dL (3.4-5.0); Anion Gap 8 meq/L (5-15); Aspartate Aminotransferase 22 U/L (15-37); Blood Urea Nitrogen 19 mg/dL (7-18); Calcium 8.4 mg/dL (8.5-10.1); Carbon Dioxide 29.5 meq/L (21.0-32.0); Chloride 107 meq/L (98-107); Glomerular Filtration Rate 50 mL/min (>89); Glucose,Random 97 mg/dL (74-106); Potassium 4.5 meq/L (3.5-5.1); Sodium 144 meq/L (136-145)
[2018-01-21 02:49] LABS: Alkaline Phosphatase 51 U/L (45-117); Creatine Kinase 186 U/L (39-308); Total Protein 6.7 g/dL (6.4-8.2)
[2018-01-21 03:01] LABS: Creatine Kinase MB 1.7 ng/mL (0.5-3.6)
[2018-01-21 03:28] LABS: Baso # (Auto) 0.1 th/mm3 (0.0-0.2); Baso % (Auto) 1.1 % (0.0-2.0); Eos # (Auto) 0.5 th/mm3 (0.0-0.4); Eos % (Auto) 8.4 % (0.0-4.0); Hematocrit 43.1 % (39.0-51.0); Hemoglobin 14.6 gm/dL (13.0-17.0); Lymph # (Auto) 1.4 th/mm3 (1.0-4.8); Lymph % (Auto) 25.4 % (9.0-44.0); Mean Corpuscular HGB Conc 33.9 % (32.0-36.0); Mean Corpuscular Hemoglobin 30.7 pg (27.0-34.0); Mean Corpuscular Volume 90.5 fL (80.0-100.0); Mean Platelet Volume 8.6 fL (7.0-11.0); Mono # (Auto) 0.4 th/mm3 (0.0-0.9); Neut # (Auto) 3.1 th/mm3 (1.8-7.7); Neut % (Auto) 57.1 % (16.0-70.0); Platelet Count 235 th/mm3 (150-450); Red Blood Count 4.76 mil/mm3 (4.50-5.90); Red Cell Distribution Width 13.6 % (11.6-17.2); White Blood Count 5.4 th/mm3 (4.0-11.0)
[2018-01-21 05:40] LABS: Creatine Kinase 155 U/L (39-308)
[2018-01-21] MEDS ORDERED: Levothyroxine 112 MCG Tablet PO SCH (07:45)
[2018-01-21] MEDS ORDERED: amLODIPine 5 MG Tablet PO ONE (08:09)
--- NOTE | 2018-01-21 08:09 | P.HPCA ---
History of Present Illness Primary Care Physician: Sachin Osorio MD Chief Complaint: Chest pain History of Present Illness: 77-year-old male with recently diagnosed with diverticulitis (currently on antibiotics), coronary artery disease, hypertension, and hyperlipidemia presents emergency room for further evaluation pain. Onset 1 AM, awaken from sleep. Location sternal. Characterizes burning. Severe in severity. No radiation. Duration approximately 6 hours. No current chest pain. No associated symptoms of nausea, vomiting, dyspnea, diaphoresis. Experienced "pounding in his head" initially. No precipitating or relieving factors. Pain reminded him exactly of prior STEMI 3 years ago. Recently started on antibiotics , Cipro and Flagyl, on 01/16/18. Antibiotics changes after one day after developing an allergy, changed to Augmentin. Follows with Dr. Cervantes. No recent cardiac testing. Past cardiac testing 03/10/17 Lexiscan-1. Fixed perfusion defect characteristic of old infarct. 2. No reversible defects so suggest ischemia. 3. Adequate wall motion EF 63%. 06/29/13 Cardiac catheterization-STEMI alert (Dr. Cervantes) Conclusions: 1. Inferior STEMI alert with culprit right coronary artery. 2. Successful stenting of the right coronary artery with a 2.5x30 and 2.5 x 18mm Resolute stent (WALTER). 3. Low normal left ventricular function. Social history Lifelong non-smoker. Denies any alcohol or recreational drug use. No coronary artery disease, hypertension, and hyperlipidemia. No known diabetes. Endorses an active lifestyle. - Diagnosis (1) Chest pain of uncertain etiology (2) History of coronary artery disease (3) Hypertension Review of Systems All other systems reviewed negative except as stated in HPI Gastrointestinal: Denies abdominal pain, Denies bloating, Denies change in stools PMFSH - History History Provided By: Patient - Medical History Medical History: Medical History (Last Reviewed 01/21/18 @ 09:15 by RACHELE Sykes) HTN (hypertension) History of heart attack Hx of malignant neoplasm of prostate Hx of renal failure Hyperlipidemia - Surgical History Surgical History: Surgical History (Last Reviewed 01/21/18 @ 09:15 by RACHELE Sykes) Hx of prostatectomy - Social History I have reviewed the patient's Social History: Yes - Tobacco History Second Hand Smoke Exposure: No Tobacco Use In Past 30 Days: No Smoking Status: Never smoker - Alcohol History How Often Do You Have a Drink Containing Alcohol: Monthly or less - Substance Use History Substance History: No History of Abuse - Travel History Recent Travel in the [place] Within the Last 8 Weeks: No Recent Travel Out of the Country Within the Last 8 Weeks: No - Immunization History Tetanus Immunization: >5 Years Hx Influenza Vaccine This Season: No Medications and Allergies Active Medications: Active Medications Amoxicillin/Clavulanate Potassium (Augmentin 875/125 Mg) 1 tab PO BID HESHAM Carvedilol (Coreg) 6.25 mg PO BID HESHAM Levothyroxine Sodium (Synthroid) 112 mcg PO DAILY@0600 HESHAM Pravastatin Sodium (Pravachol) 40 mg PO DAILY HESHAM Sodium Chloride (Ns Flush) 2 ml IV.FLUSH UNSCH PRN PRN Reason: FLUSH AFTER USING IV ACCESS Sodium Chloride (Ns Flush) 2 ml IV.FLUSH BID HESHAM Sodium Chloride (Ns Flush) 2 ml IV.FLUSH PRN PRN PRN Reason: FLUSH AFTER USING IV ACCESS Allergies Allergy/AdvReac Type Severity Reaction Status Date / Time ciprofloxacin Allergy Itching, Verified 01/16/18 23:44 Localized Home Medications Medication Instructions Recorded Confirmed Type aspirin [Aspirin Childrens] 81 mg PO DAILY 01/16/18 01/21/18 History carvedilol 6.25 mg PO BID 01/16/18 01/21/18 History levothyroxine 112 mcg PO DAILY 01/16/18 01/21/18 History pravastatin 40 mg PO DAILY 01/16/18 01/21/18 History Exam Vital signs: Vital Signs 01/21/18 02:03 01/21/18 02:04 01/21/18 02:54 Temperature 98.5 F Pulse Rate 59 L 56 L Respiratory Rate 19 16 Blood Pressure 208/98 H Pulse Oximetry 97 97 01/21/18 04:19 01/21/18 06:58 01/21/18 07:18 Temperature 98.7 F Pulse Rate 57 L 59 L Respiratory Rate 16 18 Blood Pressure 146/81 H 171/81 H Pulse Oximetry 97 95 93 L Intake & Output 01/20/18 01/21/18 01/21/18 18:59 06:59 18:59 Weight 90 kg Other: Weight On Admission 90.718 kg Narrative: GENERAL: Alert WN, WD, NAD, pleasant, male HEAD: NC, AT EYES: Sclera clear, conjunctiva without injection, pupils equal and round ENT: Mucous membranes pink and moist CV: RRR, 2/6 systolic murmur, no rub, gallop, or JVD, S1-S2 no S3-S4. No carotid bruits. Chest wall nontender to palpation. RESP: Clear lungs throughout bilateral, no crackles, wheeze, rhonchi, symmetrical chest rise, nonlabored, able to speak in full sentences ABD: Soft, NT, ND, no masses, positive bowel tones EXT: Pulses +2x4, no dependent edema MS: Normal tone x4 extremities, nontender, no obvious deformities, full range of motion NEURO: CN II through CN XII grossly intact, motor strength 5/5 PSYCH: A+O x3, pleasant affect, appropriate speech, mood, insight and judgment SKIN: Normal turgor, normal texture, no lesions, no rashes, brisk cap refill, even hair distribution Results 01/21/18 02:05 01/21/18 02:05 Cardiac Enzymes 01/21/18 01/21/18 Range/Units 02:05 05:00 AST 22 (15-37) U/L CK-MB (CK-2) 1.7 (0.5-3.6) ng/mL Troponin I Less than 0.02 L Less than 0.02 L (0.02-0.05) ng/mL CBC 01/21/18 Range/Units 02:05 WBC 5.4 (4.0-11.0) th/mm3 RBC 4.76 (4.50-5.90) mil/mm3 Hgb 14.6 (13.0-17.0) gm/dL Hct 43.1 (39.0-51.0) % Plt Count 235 (150-450) th/mm3 Neut # (Auto) 3.1 (1.8-7.7) th/mm3 Lymph # (Auto) 1.4 (1.0-4.8) th/mm3 [place] # (Auto) 0.4 (0.0-0.9) th/mm3 Eos # (Auto) 0.5 H (0.0-0.4) th/mm3 Baso # (Auto) 0.1 (0.0-0.2) th/mm3 Comprehensive Metabolic Panel 01/21/18 Range/Units 02:05 Sodium 144 (136-145) meq/L Potassium 4.5 (3.5-5.1) meq/L Chloride 107 (98-107) meq/L Carbon Dioxide 29.5 (21.0-32.0) meq/L BUN 19 H (7-18) mg/dL Creatinine 1.39 H (0.60-1.30) mg/dL Calcium 8.4 L (8.5-10.1) mg/dL AST 22 (15-37) U/L ALT 33 (12-78) U/L Alkaline Phosphatase 51 (45-117) U/L Total Protein 6.7 D (6.4-8.2) g/dL Albumin 3.4 (3.4-5.0) g/dL Intake and Output 01/20/18 01/21/18 01/21/18 22:59 06:59 14:59 Other: Weight 90 kg Weight On Admission 90.718 kg EKG interpretations - EKG EKG results cardiology: sinus rhythm, normal axis, normal ST/T Caprini VTE Risk Assessment Caprini VTE Risk Assessment: Moderate/High Risk (score >= 2) Caprini Risk Assessment Model: Point Value = 1 Point Value = 2 Point Value = 3 Point Value = 5 Age 41-60 Minor surgery BMI > 25 kg/m2 Swollen legs Varicose veins or History of unexplained or recurrent spontaneous Oral contraceptives or hormone replacement Sepsis (< 1 month) Serious lung disease, including pneumonia (< 1 month) Abnormal pulmonary function Acute myocardial infarction Congestive heart failure (< 1 month) History of inflammatory bowel disease Medical patient at bed rest Age 61-74 Arthroscopic surgery Major open surgery (> 45 min) Laparoscopic surgery (> 45 min) Malignancy Confined to bed (> 72 hours) Immobilizing plaster cast Central venous access Age >= 75 History of VTE Family history of VTE Factor V Leiden Prothrombin [id number] Lupus anticoagulant Anticardiolipin antibodies Elevated serum homocysteine Heparin-induced thrombocytopenia Other congenital or acquired thrombophilia Stroke (< 1 month) Elective arthroplasty Hip, pelvis, or leg fracture Acute spinal cord injury (< 1 month) Prophylaxis Regimen: Total Risk Factor Score Risk Level Prophylaxis Regimen 0-1 Low Early ambulation 2 Moderate Order ONE of the following: *Sequential Compression Device (SCD) *Heparin 5000 units SQ BID 3-4 Higher Order ONE of the following medications: *Heparin 5000 units SQ TID *Enoxaparin/Lovenox 40 mg SQ daily (WT < 150 kg, CrCl > 30 mL/min) *Enoxaparin/Lovenox 30 mg SQ daily (WT < 150 kg, CrCl > 10-29 mL/min) *Enoxaparin/Lovenox 30 mg SQ BID (WT < 150 kg, CrCl > 30 mL/min) AND/OR *Sequential Compression Device (SCD) 5 or more Highest Order ONE of the following medications: *Heparin 5000 units SQ TID (Preferred with Epidurals) *Enoxaparin/Lovenox 40 mg SQ daily (WT < 150 kg, CrCl > 30 mL/min) *Enoxaparin/Lovenox 30 mg SQ daily (WT < 150 kg, CrCl > 10-29 mL/min) *Enoxaparin/Lovenox 30 mg SQ BID (WT < 150 kg, CrCl > 30 mL/min) AND *Sequential Compression Device (SCD) Assessment and Plan - Assessment (1) Chest pain of uncertain etiology Code(s): R07.89 - Other chest pain Status: Acute Plan: Admitted chest pain center. ACS ruled out with 3 sets of EKGs and cardiac enzymes. Seen and evaluated by Dr. Jason Hurtado. Received with myocardial perfusion study this morning. If unremarkable, plans to discharge home with follow-up with both primary care provider and Dr. Cervantes. Discomfort may be related to recent antibiotic use, discomfort since resolved. (2) History of coronary artery disease Code(s): Z86.79 - Personal history of other diseases of the circulatory system Status: Chronic Plan: Continue aspirin, Coreg, and pravastatin. (3) Hypertension Code(s): I10 - Essential (primary) hypertension Status: Chronic Plan: Continue to monitor. Amlodipine 5 mg p.o. 1 dose now. Consider adding amlodipine upon discharge. H&P: Quality - VTE Deep Vein Thrombosis/Pulmonary Embolism Present on Admission: No (3) Hypertension Qualifiers: Hypertension type: unspecified Qualified Code(s): I10 - Essential (primary) hypertension
[2018-01-21] MEDS ORDERED: Carvedilol 6.25 MG Tablet PO SCH (09:00)
[2018-01-21] MEDS ORDERED: Amoxicillin/Clavulanate 875/125 MG Tablet PO SCH (09:00)
[2018-01-21 09:12] LABS: Creatine Kinase 157 U/L (39-308)
--- NOTE | 2018-01-21 09:34 | P.PNCA ---
Subjective Interval history: Very pleasant 77-year-old gentleman followed by Dr. Cervantes with a history of coronary artery disease and 2 stents placed in the right coronary artery in 2013 due to his family presentation. He represents now with chest pain that is similar to the pain that he had at that time. He is followed routinely by Dr. Cervantes had a negative nuclear stress test in 2017. He recently was diagnosed with diverticulitis and treated with antibiotics as already recorded. He is currently pain-free his troponins are negative 2 and his EKG shows no acute changes. Nevertheless in view of the similarity of his current presentation to his prior is documented ischemic episode nuclear stress test will be carried out prior to determination for further treatment. His evaluation and treatment plan was thoroughly discussed with the nurse practitioner and we are in agreement. Physical Exam Vital signs: Vital Signs 01/21/18 02:03 01/21/18 02:04 01/21/18 02:54 Temperature 98.5 F Pulse Rate 59 L 56 L Respiratory Rate 19 16 Blood Pressure 208/98 H Pulse Oximetry 97 97 01/21/18 04:19 01/21/18 06:58 01/21/18 07:18 Temperature 98.7 F Pulse Rate 57 L 59 L Respiratory Rate 16 18 Blood Pressure 146/81 H 171/81 H Pulse Oximetry 97 95 93 L Intake & Output 01/20/18 01/21/18 01/21/18 18:59 06:59 18:59 Weight 90 kg Other: Weight On Admission 90.718 kg Narrative: Well-nourished well-developed gentleman in no acute distress at the time I evaluated him. Chest clear to auscultation no rales wheezes or rhonchi Cardiovascular regular sinus rhythm no gallops rubs or murmurs Abdomen soft slightly tender but no guarding or rebound and no masses Otherwise in agreement with exam is documented. Assessment and Plan - Assessment (1) Chest pain of uncertain etiology Code(s): R07.89 - Other chest pain Status: Acute Plan: Admitted chest pain center. ACS ruled out with 3 sets of EKGs and cardiac enzymes. Seen and evaluated by Dr. Jason Hurtado. Received with myocardial perfusion study this morning. If unremarkable, plans to discharge home with follow-up with both primary care provider and Dr. Cervantes. Discomfort may be related to recent antibiotic use. (2) History of coronary artery disease Code(s): Z86.79 - Personal history of other diseases of the circulatory system Status: Chronic Plan: Continue aspirin, Coreg, and pravastatin. (3) Hypertension Code(s): I10 - Essential (primary) hypertension Status: Chronic Plan: Continue to monitor. Amlodipine 5 mg p.o. 1 dose now. (3) Hypertension Qualifiers: Hypertension type: unspecified Qualified Code(s): I10 - Essential (primary) hypertension
[2018-01-21] MEDS ORDERED: Regadenoson Inj 0.4 MG/5 ML Syringe IV.PUSH ONE (09:55)
--- NOTE | 2018-01-21 11:02 | NM ---
EXAM DATE: 01/21/2018 10:59 AM EDT AGE/SEX: 77 years / Male INDICATIONS:Angina. Coronary artery disease Substernal chest pain. CLINICAL DATA: This is the patient's initial encounter. Patient reports that signs and symptoms have been present for 1 day and indicates a pain score of 4/10. MEDICAL/SURGICAL HISTORY: Carcinoma, prostatic. Myocardial infarction. Hypertension. Coronary artery stent. COMPARISON: [facility], MYOCARDIAL PERF PHARM SPECT, 03/10/2017. . DOSE: 8.2 mCi Tc 99m Myoview at rest 26.3 mCi [id number] at stress 0.4 mg Lexiscan STRESS SYMPTOMS: None. EJECTION FRACTION: >70 % TECHNIQUE: The patient underwent pharmacologic stress with infusion of prescribed dose. Continuous ECG tracing was monitored during stress. Gated SPECT imaging was performed after stress and conventi onal SPECT imaging was performed at rest. The examination was performed on a SPECT/CT scanner, both attenuation and non-corrected datasets were reviewed. FINDINGS: Distribution: The maximum perfused segment at stress is in the lateral wall. Perfusion Study: The pattern of perfusion at stress is within normal limits. Gated Study: There are intact wall motion and wall thickening without hypokinetic or dyskinetic segm ents. The ejection fraction is calculated at >70%. RISK CATEGORY: Low (<1% Annual Motality Rate) CONCLUSION: 1. No evidence of fixed or reversible defect. Normal ejection fraction and motion. Electronically signed by: Jo Whittington MD 01/21/2018 11:01 AM EDT
--- NOTE | 2018-01-21 12:26 | ECG ---
Date Performed: 01/21/2018 Time Performed: 05:04:58 PTAGE: 77 years EKG: SINUS BRADYCARDIA WITH SINUS ARRHYTHMIA WITH FIRST DEGREE AV BLOCK MARKED LEFT AXIS DEVIATI ON PATTERN CONSISTENT WITH PULMONARY DISEASE INCOMPLETE RIGHT BUNDLE BRANCH BLOCK ABNORMAL ECG PREVIOUS TRACING : 01/21/2018 01.54 Since the previous tracing, no significant change noted DOCTOR: Shawn Zepeda Interpretating Date/Time 01/21/2018 12:26:20
--- NOTE | 2018-01-21 12:27 | ECG ---
Date Performed: 01/21/2018 Time Performed: 01:54:54 PTAGE: 77 years EKG: Sinus rhythm WITH FIRST DEGREE AV BLOCK PATTERN CONSISTENT WITH PULMONARY DISEASE INCOMPLETE RIGHT BUNDLE BRANCH BLOCK LEFT ANTERIOR FASCICULAR BLOCK ABNORMAL ECG PREVIOUS TRACING : 03/10/2017 06.12 Since the previous tracing, no significant change noted DOCTOR: Shawn Zepeda Interpretating Date/Time 01/21/2018 12:27:00
--- NOTE | 2018-01-21 13:28 | ECG ---
Date Performed: 01/21/2018 Time Performed: 08:30:27 PTAGE: 77 years EKG: SINUS BRADYCARDIA MARKED LEFT AXIS DEVIATION PATTERN CONSISTENT WITH PULMONARY DISEASE INCO MPLETE RIGHT BUNDLE BRANCH BLOCK ABNORMAL ECG INTERPRETATION BASED ON A DEFAULT AGE OF 40 YEARS No si gnificant change NO PREVIOUS TRACING DOCTOR: Jason Hurtado Interpretating Date/Time 01/21/2018 13:27:22
--- NOTE | 2018-01-22 13:58 | TR ---
Date Performed: 01/21/2018 Time Performed: 10:22:15 DOCTOR: Shawn Zepeda DRUG LIST: CLINICAL HISTORY: REASON FOR TEST: REASON FOR ENDING: OBSERVATION: CONCLUSION: COMMENTS: Lexiscan stress test was performed under standard four minute protocol. Radionuclide was injected one minute prior to ending the test. No electrocardiographic abormalities were present t o suggest ischemia. Nuclear imaging and interpretation are pending.
== END 2018-01-21 11:51 | disposition home or self-care (01) ==
LOC: NEPC 01:49 → NEDA 01:49 → NEPGCP 05:13
PROVIDERS: ADMIT Internal Medicine Interventional Cardiology; ATTEND Internal Medicine Interventional Cardiology